=== PATIENT | female | born 1980 | race American Indian/Alaskan Native ===

== ENCOUNTER 2017-04-30 13:51 | Emergency (ER) | payer OTHER ==
[2017-04-30 14:08] VITALS: BP 145/94
--- NOTE | 2017-04-30 15:51 | Emergency Department Report ---
Blank Doc - Documentation Documentation: Patient is a 36-year-old female who is presenting with chest discomfort. Patient states that yesterday she started getting some back discomfort that radiated around to the left chest and into the left arm with some mild shortness of breath. Patient states was a full sensation about 5 out of 10 in severity. Patient felt as though she ate he'll get better however due to get worse. Patient states Mastisol uncomfortable feeling. She feels as though she could just belch she would feel better. Patient also started feeling some palpitations and anxiety because she is worried that this was something cardiac. Patient has no past medical history of diabetes hypertension and high cholesterol or smoking. She does have some family history of heart disease in the late 40s.
--- NOTE | 2017-04-30 16:37 | XRay Report ---
FINAL REPORT EXAM: XR CHEST ROUTINE 2V HISTORY: cough TECHNIQUE: PA and lateral views of the chest PRIORS: None. FINDINGS: Lines, tubes, and devices: N/A Lungs and pleura: Trachea is normal in position. Lungs are clear of infiltrate, pleural effusion, vascular congestion, or pneumothorax. Cardiomediastinal silhouette: Cardiac and mediastinal silhouettes are unremarkable. Other: Bony structures are intact. IMPRESSION: No acute cardiopulmonary process seen.
[2017-04-30 16:51] LABS: Alanine Aminotransferase 10 units/L (7-56); BUN/Creatinine Ratio 7; Blood Urea Nitrogen 5 mg/dL (7-17); Calcium 9.1 mg/dL (8.4-10.2); Hemolysis Index 1
--- NOTE | 2017-04-30 17:10 | Emergency Department Report ---
ED Chest Pain HPI - General Chief Complaint: Chest Pain Stated Complaint: CHEST PAIN Time Seen by Provider: 04/30/17 15:30 Source: patient Mode of arrival: Ambulatory Limitations: No Limitations - History of Present Illness Initial Comments: Patient is a 36-year-old female who is presenting with chest discomfort. Patient states that yesterday she started getting some back discomfort that radiated around to the left chest and into the left arm with some mild shortness of breath. Patient states was a full sensation about 5 out of 10 in severity. Patient felt as though she ate he'll get better however due to get worse. Patient states Mastisol uncomfortable feeling. She feels as though she could just belch she would feel better. Patient also started feeling some palpitations and anxiety because she is worried that this was something cardiac. Patient has no past medical history of diabetes hypertension and high cholesterol or smoking. She does have some family history of heart disease in the late 40s. - Related Data Allergies Allergy/AdvReac Type Severity Reaction Status Date / Time hydrocodone Allergy Itching Verified 04/30/17 14:03 metoclopramide [From Reglan] Allergy Unknown Verified 04/30/17 14:03 shannan Allergy Rash Uncoded 04/30/17 14:03 Heart Score - HEART Score History: Slightly suspicious EKG: Normal Age: < 45 Risk factors: No known risk factors Troponin: < normal limit HEART Score: 0 ED Review of Systems ROS: Stated complaint: CHEST PAIN Other details as noted in HPI Comment: All other systems reviewed and negative ED Past Medical Hx - Past Medical History Hx Asthma: Yes - Surgical History Additional Surgical History: ganglion cyst, tonsilectomy, d&C, polypectomy - Social History Smoking Status: Never Smoker Substance Use Type: Alcohol ED Physical Exam - General Limitations: No Limitations General appearance: alert, in no apparent distress - Head Head exam: Present: atraumatic, normocephalic - Eye Eye exam: Present: normal appearance - ENT ENT exam: Present: mucous membranes moist - Neck Neck exam: Present: normal inspection - Respiratory Respiratory exam: Present: normal lung sounds bilaterally. Absent: respiratory distress - Cardiovascular Cardiovascular Exam: Present: regular rate, normal rhythm. Absent: systolic murmur, diastolic murmur, rubs, gallop - GI/Abdominal GI/Abdominal exam: Present: soft, normal bowel sounds - Extremities Exam Extremities exam: Present: normal inspection - Back Exam Back exam: Present: normal inspection - Neurological Exam Neurological exam: Present: alert, oriented X3 - Psychiatric Psychiatric exam: Present: normal affect, normal mood - Skin Skin exam: Present: warm, dry, intact, normal color. Absent: rash ED Course Vital Signs 04/30/17 14:03 Temperature 98.3 F Pulse Rate 94 H Respiratory 20 Rate Blood Pressure 145/94 O2 Sat by Pulse 98 Oximetry ED Medical Decision Making - Lab Data Result diagrams: 04/30/17 16:15 Lab Results 04/30/17 Range/Units 16:15 Sodium 139 (137-145) mmol/L Potassium 3.5 L (3.6-5.0) mmol/L Chloride 98.7 (98-107) mmol/L Carbon Dioxide 27 (22-30) mmol/L Anion Gap 17 mmol/L BUN 5 L (7-17) mg/dL Creatinine 0.7 (0.7-1.2) mg/dL Estimated GFR > 60 ml/min BUN/Creatinine Ratio 7 % Glucose 114 H (65-100) mg/dL Calcium 9.1 (8.4-10.2) mg/dL Total Bilirubin 0.40 (0.1-1.2) mg/dL AST 15 (5-40) units/L ALT 10 (7-56) units/L Alkaline Phosphatase 85 (35-129) units/L Troponin T < 0.010 (0.00-0.029) ng/mL Total Protein 7.6 (6.3-8.2) g/dL Albumin 4.0 (3.9-5) g/dL Albumin/Globulin Ratio 1.1 % - EKG Data -: EKG Interpreted by Me - EKG Data Interpretation: other (KG shows sinus rhythm at a rate of 90 normal axis normal intervals no ST segment elevation or depressions time of interpretation is 2 PM. ) - Radiology Data Radiology results: report reviewed No acute process - Medical Decision Making She is a 36-year-old [place] female who is complaining of some atypical chest discomfort. Patient states she started feeling better after she saw the EKG was normal. Patient's after hearing that her troponin was negative as well pleased that she may be having some symptoms secondary to stress. Patient states she has been under quite a deal of stress lately and [facility] phone calls to try to find a therapist. Patient be discharged home to stop. Critical care attestation.: If time is entered above; I have spent that time in minutes in the direct care of this critically ill patient, excluding procedure time. ED Disposition Clinical Impression: Atypical chest pain Disposition: DC-01 TO HOME OR SELFCARE Is pt being admited?: No Does the pt Need Aspirin: No Condition: Stable Instructions: Chest Pain (ED) Referrals: PRIMARY CARE, [Primary Care Provider] - 3-5 Days
== END 2017-04-30 17:25 | disposition home or self-care (01) ==
LOC: ED 13:51
DX: R07.89 Other chest pain (principal); J45.909 Unspecified asthma, uncomplicated; Z90.89 Acquired absence of other organs; Z88.8 Allergy status to other drugs, medicaments and biological substances; Z88.5 Allergy status to narcotic agent
CPT/HCPCS: 36415; 71046; 80053; 84484; 93005; 93010